=== PATIENT | female | born 1965 | race Caucasian/White ===

== ENCOUNTER 2017-05-31 10:42 | Emergency (ER) | payer SELFPAY ==
[2017-05-31] MEDS ORDERED: Sodium Chloride 0.9% 1,000 ML IV ONE (10:48)
[2017-05-31] MEDS ORDERED: Haloperidol Lactate 5 mg/mL 1mL Vial IM PRN (11:05)
[2017-05-31] MEDS ORDERED: Haloperidol Lactate 5 mg/mL 1mL Vial ONE (11:05)
--- NOTE | 2017-05-31 11:54 | ED Physician Chart ---
Chief Complaint/HPI - Patient Information Date Seen:: 05/31/17 Time Seen:: 10:51 Chief Complaint:: SEIZURES History of Present Illness:: THIS IS A 51 YO FEMALE BIB [facility] FOR AN EVALUATION AND TREATMENT. THE PATIENT WAS AT FIRST ONLY RESPONSIVE TO DEEP PAIN STIMULI AND BECAME OUT OF CONTROL SPITTING AND FIGHTING THE STAFF. SHE PULLED HER IV OUT AND PULLED OFF HER MONITORING APPARATUS. SHE STARTED TO SCREEN, CUS AND HAD TO BE PLACED IN HARD RESTAINTS. Allergies:: Allergies Allergy/AdvReac Type Severity Reaction Status Date / Time No Known Allergies Allergy Verified 05/31/17 10:49 Vitals:: Vital Signs - 8 hr 05/31/17 10:50 Temp 99.3 F HR 120 RR 16 BP 123/76 O2 Sat % 98 Historian:: EMS, Other ([facility]) Review:: Nurse's Note Reviewed, EMS run form Reviewed, Patient unable to respond Review of Systems - Review of Systems General/Constitutional: No fever, No chills, No weight loss, No weakness, No diaphoresis, No edema, No loss of appetite, Other (AT THIS TIME THE PATIENT IS UNABLE TO GIVE A REVIEW OF SYSTEMS.) Skin: No skin lesions, No rash, No bruising Head: No headache, No light-headedness Eyes: No loss of vision, No pain, No diplopia ENT: No earache, No nasal drainage, No sore throat, No tinnitus Neck: No neck pain, No swelling, No thyromegaly, No stiffness, No mass noted Cardio Vascular: No chest pain, No palpitations, No PND, No orthopnea, No edema Pulmonary: No SOB, No cough, No sputum, No wheezing GI: No nausea, No vomiting, No diarrhea, No pain, No melena, No hematochezia, No constipation, No hematemesis G/U: No dysuria, No frequency, No hematuria Musculoskeletal: No bone or joint pain, No back pain, No muscle pain Endocrine: No polyuria, No polydipsia Psychiatric: No prior psych history, No depression, No anxiety, No suicidal ideation Hematopoietic: No bruising, No lymphadenopathy Allergic/Immuno: No urticaria, No angioedema Neurological: No syncope, No focal symptoms, No weakness, No paresthesia, No headache, No seizure, No dizziness, No confusion, No vertigo Past Medical History - Past Medical History Obtainable: No Past Medical History: CAD, Seizures Family History: None Social History: Non Smoker, No Alcohol, No Drug Use Surgical History: None Medication: Reviewed Family Medical History - Family Member Nephew History Unknown: Yes Physical Exam - Physical Examination General/Constitutional: Awake, Well-developed, well-nourished, Alert, No distress, GCS 15, Non-toxic appearing, Ambulatory Other Gen/Cons comments:: THE PATIENT IS NOT COOPERATIVE AND ONLY INTERMITTENTLY ALERT. Head: Atraumatic Eyes: Lids, conjuctiva normal, PERRL, EOMI Skin: Nl inspection, No rash, No skin lesions, No ecchymosis, Well hydrated, No lymphadenopathy ENMT: External ears, nose nl, Nasal exam nl, Lips, teeth, gums nl Neck: Nontender, Full ROM w/o pain, No JVD, No nuchal rigidity, No bruit, No mass, No stridor Respiratory: Nl effort/Exclusion, Clear to Auscultation, No Wheeze/Rhonchi/Rales Cardio Vascular: RRR, No murmur, gallop, rubs, NL S1 S2 GI: No tenderness/rebounding/guarding, No organomegaly, No hernia, Normal BS's, Nondistended, No mass/bruits, No McBurney tenderness : No CVA tenderness Extremities: No tenderness or effusion, Full ROM, normal strength in all extremities, No edema, Normal digits & nails Neuro/Psych: Alert/oriented, DTR's symmetric, Normal sensory exam, Normal motor strength, Judgement/insight normal, Mood normal, Normal gait, No focal deficits Misc: normal gait, Normal back, No paraspinal tenderness Labs/Radiology/EKG Results - Lab Results Results: Abnormal Lab Results 05/31/17 05/31/17 05/31/17 11:57 11:57 11:57 WBC RBC Hgb Hct MCV MCH MCHC Differential RDW Plt Count MPV Neutrophils % Lymphocytes % Monocytes % Eosinophils % Basophils % PT 10.0 INR 0.96 Sodium Potassium Chloride Carbon Dioxide Anion Gap BUN Creatinine Est GFR ( Amer) Est GFR (Non-Af Amer) BUN/Creatinine Ratio Glucose Calcium Total Bilirubin AST ALT Alkaline Phosphatase Troponin I Total Protein Albumin Globulin Albumin/Globulin Ratio Triglycerides 180 H Cholesterol 187 LDL Cholesterol Direct 108 HDL Cholesterol 53 Urine Source Urine Color Urine Clarity Urine pH Ur Specific [place] Urine Protein Urine Glucose (UA) Urine Ketones Urine Blood Urine Nitrate Urine Bilirubin Urine Urobilinogen Ur Leukocyte Esterase Urine RBC Urine WBC Ur Epithelial Cells Amorphous Sediment Urine Bacteria Ethyl Alcohol 224 H 05/31/17 05/31/17 05/31/17 11:57 11:57 11:57 WBC 6.7 RBC 4.33 Hgb 13.6 Hct 40.4 MCV 93.2 MCH 31.4 H MCHC Differential 33.7 RDW 12.8 Plt Count 239 MPV 8.7 Neutrophils % 62.3 Lymphocytes % 28.4 Monocytes % 8.0 Eosinophils % 0.3 Basophils % 1.0 PT INR Sodium 137 Potassium 3.7 Chloride 108 H Carbon Dioxide 19.3 L Anion Gap 13.4 BUN 9 Creatinine 0.8 Est GFR ( Amer) > 60.0 Est GFR (Non-Af Amer) > 60.0 BUN/Creatinine Ratio 11.3 Glucose 93 Calcium 8.9 Total Bilirubin 0.3 AST 17 ALT 12 Alkaline Phosphatase 60 Troponin I < 0.01 L Total Protein 7.0 Albumin 4.1 Globulin 2.9 Albumin/Globulin Ratio 1.4 Triglycerides Cholesterol LDL Cholesterol Direct HDL Cholesterol Urine Source Urine Color Urine Clarity Urine pH Ur Specific Nucl[place] Urine Protein Urine Glucose (UA) Urine Ketones Urine Blood Urine Nitrate Urine Bilirubin Urine Urobilinogen Ur Leukocyte Esterase Urine RBC Urine WBC Ur Epithelial Cells Amorphous Sediment Urine Bacteria Ethyl Alcohol 05/31/17 12:05 WBC RBC Hgb Hct MCV MCH MCHC Differential RDW Plt Count MPV Neutrophils % Lymphocytes % Monocytes % Eosinophils % Basophils % PT INR Sodium Potassium Chloride Carbon Dioxide Anion Gap BUN Creatinine Est GFR ( Amer) Est GFR (Non-Af Amer) BUN/Creatinine Ratio Glucose Calcium Total Bilirubin AST ALT Alkaline Phosphatase Troponin I Total Protein Albumin Globulin Albumin/Globulin Ratio Triglycerides Cholesterol LDL Cholesterol Direct HDL Cholesterol Urine Source CLEAN C Urine Color YELLOW Urine Clarity SL. CLOUDY Urine pH 5.0 Ur Specific Nucla 1.015 Urine Protein NEGATIVE Urine Glucose (UA) NEGATIVE Urine Ketones NEGATIVE Urine Blood NEGATIVE Urine Nitrate NEGATIVE Urine Bilirubin NEGATIVE Urine Urobilinogen 0.2 Ur Leukocyte Esterase NEGATIVE Urine RBC NONE SEEN Urine WBC NONE SEEN Ur Epithelial Cells FEW Amorphous Sediment FEW URATES Urine Bacteria OCCASIONAL Ethyl Alcohol - Radiology Results Results: CHEST X-RAY = NAD - EKG Interpretations EKG Time:: 12:55 Rate & Rhythm: 99 [place]: RIGHT ED Septic Shock - . Is Septic Shock (SBP<90, OR Lactate>4 mmol\L) present?: No - <6hrs of presentation: Vital Signs: Vital Signs - 8 hr 05/31/17 10:50 Temp 99.3 F HR 120 RR 16 BP 123/76 O2 Sat % 98 Reassessment (Disposition) - Diagnosis Diagnosis:: PSYCHOSIS - Aftercare/Follow up Instructions Aftercare/Follow-Up Instructions:: Counseled pt regarding lab results/diagnosis & need follow up, Refer to Discharge Instructions, Counseled pt & family regarding lab results/diagnosis & need follow up - Patient Disposition Discharge/Transfer:: Detention/Retirement Condition at Disposition:: Unchanged ED Discharge Plan - Patient Disposition Admit/Discharge/Transfer: Detention/Retirement Condition at Disposition: Unchanged
[2017-05-31 12:08] LABS: % EOSINOPHILS 0.3 % (0.0-5.0); % LYMPHOCYTES 28.4 % (20.0-50.0); % NEUTROPHILS 62.3 % (40.0-80.0); HEMATOCRIT 40.4 % (35.0-45.0); HEMOGLOBIN 13.6 gm/dL (11.7-15.5); MEAN CELL VOLUME 93.2 fl (81-100); MEAN CORPUSCULAR HEMOGLOBIN 31.4 pg (27.0-31.0); MEAN CORPUSCULAR HGB CONC 33.7 pg (28.0-36.0); MEAN PLATELET VOLUME 8.7 fl; NEUTROPHILE ABSOLUTE 4.2 Th/cmm (1.8-8.0); PLATELET COUNT 239 Th/cmm (150-400); RED BLOOD COUNT 4.33 Mil/cmm (3.80-5.10); RED CELL DISTRIBUTION WIDTH 12.8 % (11.5-20.0); WHITE BLOOD COUNT 6.7 Th/cmm (4.8-10.8)
[2017-05-31 12:19] LABS: INR 0.96 (0.5-1.4)
[2017-05-31 12:31] LABS: ALB/GLOB RATIO 1.4 (1.0-1.8); ALKALINE PHOSPHATASE 60 U/L (34-104); ANION GAP 13.4 (7.0-16.0); BILIRUBIN,TOTAL 0.3 mg/dL (0.3-1.0); BUN - UREA NITROGEN 9 mg/dL (7-25); BUN/CREATININE RATIO 11.3; CALCIUM SERUM 8.9 mg/dL (8.6-10.3); CARBON DIOXIDE 19.3 mEq/L (21.0-31.0); CHLORIDE 108 mEq/L (98-107); CHOLESTEROL 187 mg/dL (<200); CREATININE - SERUM 0.8 mg/dL (0.6-1.2); GLUCOSE 93 mg/dL (70-105); POTASSIUM SERUM 3.7 mEq/L (3.5-5.1); SGOT 17 U/L (13-39); SGPT/ALT 12 U/L (7-52); SODIUM SERUM 137 mEq/L (136-145); TRIGLYCERIDES 180 mg/dL (<150)
[2017-05-31 12:35] LABS: URINE COLOR YELLOW
[2017-05-31 12:36] LABS: URINE BILIRUBIN NEGATIVE (NEGATIVE); URINE BLOOD NEGATIVE (NEGATIVE); URINE GLUCOSE (UA) NEGATIVE (NEGATIVE); URINE KETONE NEGATIVE (NEGATIVE); URINE PROTEIN NEGATIVE (NEGATIVE); URINE UROBILINOGEN 0.2 E.U./dL (0.2 - 1.0)
--- NOTE | 2017-05-31 12:42 | Diagnostic Imaging Report ---
Exam: Portable supine examination of the chest HISTORY: Shortness of breath. Findings: Portable supine examination of chest at 1212 hours reviewed the study demonstrates no acute pulmonic infiltrates or effusions. Mediastinal structures midline the heart is not enlarged. Bony thorax is intact. The costophrenic angles are clear. IMPRESSION: no acute disease
[2017-05-31 12:46] LABS: URINE AMORPHOUS SEDIMENT FEW URATES (NONE SEEN); URINE BACTERIA OCCASIONAL /hpf (NONE SEEN); URINE EPITHELIAL CELLS FEW /lpf (FEW); URINE RBC NONE SEEN /hpf (0-5); URINE WBC NONE SEEN /hpf (0-5)
[2017-05-31 13:46] LABS: AMPHETAMINE URINE NEGATIVE (NEGATIVE); BARBITURATES URINE NEGATIVE (NEGATIVE); METHADONE URINE NEGATIVE (NEGATIVE)
== END 2017-05-31 13:15 | disposition still patient (30) ==
LOC: ER 10:42
DX: F29 Unspecified psychosis not due to a substance or known physiological condition (principal); I25.10 Atherosclerotic heart disease of native coronary artery without angina pectoris
CPT/HCPCS: 99285; 96372; 96374; 93005; 71010; 84484; 36415; 80307; 84443; 86592; 85025; 85610; 81001; 80320; 80053; 80061; J2060; J1200; J1630; Z7610